=== PATIENT | female | born 1975 | race Caucasian/White ===

== ENCOUNTER 2017-10-24 22:53 | Outpatient (CLI) | payer MEDICAID ==
[~2017-10-24] VITALS: Ht 162.6 cm; Wt 81.8 kg
[2017-10-24 23:11] VITALS: BP 118/85
[2017-10-24 23:21] LABS: MICROSCOPIC NOT IND
[2017-10-24 23:47] LABS: BASOPHILS # (AUTO) 0.02 x10^3/uL (0-0.1); BASOPHILS % (AUTO) 0 % (0-1); EOSINOPHILS # (AUTO) 0.14 x10^3/uL (0-0.4); EOSINOPHILS % (AUTO) 1 % (1-7); LYMPHOCYTES # (AUTO) 2.87 x10^3/uL (1-3.4); LYMPHOCYTES % (AUTO) 26 % (22-44); MD NO; MEAN CORPUSCULAR HGB CONC 32.4 g/dL (32.4-35.8); MEAN CORPUSCULAR VOLUME 80.5 fL (80-100); MEAN PLATELET VOLUME 7.3 fL (7.4-10.4); MONOCYTES # (AUTO) 1.01 x10^3/uL (0.2-0.8); MONOCYTES % (AUTO) 9 % (2-9); NEUTROPHILS # (AUTO) 6.86 x10^3/uL (1.8-6.8); NEUTROPHILS % (AUTO) 63 % (42-75); PLATELET COUNT 418 x10^3/uL (130-400); RED BLOOD COUNT 3.87 x10^6/uL (3.82-5.3); RED CELL DISTRIBUTION WIDTH 14.9 % (9.6-15.2)
[2017-10-24] MEDS ORDERED: ONDANSETRON 4 MG TABLET ONE (23:53)
[2017-10-24] MEDS ORDERED: MEPERIDINE/PF 100 MG/ML ONE (23:53)
[2017-10-24 23:59] LABS: ALANINE AMINOTRANSFERASE 18 U/L (12-78); ALBUMIN 2.5 g/dL (3.4-5.0); ANION GAP 9 mmol/L (5-15); CHLORIDE 110 mmol/L (98-107)
[2017-10-25] MEDS ORDERED: MEPERIDINE/PF 50 MG/ML IM PRN
[2017-10-25] MEDS ORDERED: ONDANSETRON ODT 4 MG PO ONE
[2017-10-25 00:02] LABS: ALKALINE PHOSPHATASE 104 U/L (45-117); BILIRUBIN,TOTAL 0.2 mg/dL (0.2-1.0); TOTAL PROTEIN 6.8 g/dL (6.4-8.2)
[2017-10-25 00:03] LABS: BILIRUBIN, DIRECT < 0.1 mg/dL (0.1-0.2)
== END 2017-10-25 00:56 | disposition home or self-care (01) ==
LOC: LDOP 22:53
PROVIDERS: ATTEND Obstetrics & Gynecology
DX: O13.3 Gestational [pregnancy-induced] hypertension without significant proteinuria, third trimester (principal); O26.893 Other specified pregnancy related conditions, third trimester; R51 Headache; Z3A.35 35 weeks gestation of pregnancy
CPT/HCPCS: 36415; 59025; 80053; 81003; 82248; 84550; 85025; 87086; 96372; 99211; J2175; Q0162; G0463